=== PATIENT | female | born 1980 | race African-American/Black ===

== ENCOUNTER 2017-07-19 02:00 | Emergency (ER) | payer OTHER ==
[~2017-07-19] VITALS: Ht 167.6 cm; Wt 113.4 kg
[2017-07-19] MEDS ORDERED: VASOTEC 2.5MG2.5 M1 PO (02:13)
[2017-07-19] MEDS ORDERED: NORCO 5-325 TA1 EACH PO (02:48)
[2017-07-19 03:13] VITALS: BP 165/107
== END 2017-07-19 03:15 | disposition home or self-care (01) ==
LOC: ER 02:00
DX: S16.1XXA Strain of muscle, fascia and tendon at neck level, initial encounter (principal); S01.511A Laceration without foreign body of lip, initial encounter; S80.212A Abrasion, left knee, initial encounter; S80.211A Abrasion, right knee, initial encounter; Y08.89XA Assault by other specified means, initial encounter; F17.210 Nicotine dependence, cigarettes, uncomplicated; Y93.89 Activity, other specified; Y92.89 Other specified places as the place of occurrence of the external cause; Y99.8 Other external cause status